=== PATIENT | female | born 1990 | race Caucasian/White ===

== ENCOUNTER → 2017-07-06 13:19 | Outpatient (CLI) | payer OTHER, SELFPAY ==
[2017-07-15 15:59] LABS: HPV APTIMA, High Risk Negative (Negative)
[2017-07-15 16:00] LABS: HPV Reflexed? YES, CHARGE PATIENT
== END ==
PROVIDERS: Visit Provider Obstetrics & Gynecology
DX: Z12.4 Encounter for screening for malignant neoplasm of cervix (principal)
CPT/HCPCS: 87624; 88175; G0145

== ENCOUNTER → 2021-02-18 16:00 | Outpatient (CLI) | payer SELFPAY ==
[2021-02-22 14:18] LABS: HPV Reflexed? NOT INDICATED
== END ==
PROVIDERS: Visit Provider Obstetrics & Gynecology
DX: Z12.4 Encounter for screening for malignant neoplasm of cervix (principal)
CPT/HCPCS: 88175; G0145

== ENCOUNTER → 2021-03-27 09:21 | Outpatient (CLI) | payer SELFPAY, OTHER ==
--- NOTE | 2021-03-27 09:32 | RAD_ITS ---
STUDY: HYSTEROSALPINGOGRAM. REASON FOR EXAM: Female, 31 years old. CHECK TUBAL PATENCY. FLUOROSCOPY TIME (if supplied): ( 11 seconds ) minutes/seconds. 2 images were obtained. TECHNIQUE: A hysterosalpingogram was performed by the director of business services. Imaging was provided. COMPARISON: None. FINDINGS: The uterus is unremarkable. Both fallopian tubes are widely patent with spill. RAD/Salpingogram IMPRESSION: Patency of the fallopian tubes bilaterally. Electronically Signed: Johnnie Gale MD at 10:42 EDT , Service support ,
== END ==
PROVIDERS: Referring Provider Obstetrics & Gynecology; Visit Provider Obstetrics & Gynecology
DX: Z31.41 Encounter for fertility testing (principal)
CPT/HCPCS: 58340; 74740; Q9967